=== PATIENT | female | born 1960 | race Caucasian/White ===

== ENCOUNTER 2021-09-10 07:34 | Emergency (ER) | payer OTHER, SELFPAY ==
--- NOTE | 2021-09-10 | ECG_ITS ---
Test Reason : HI HEART RATE Blood Pressure : / mmHG Vent. Rate : 186 BPM Atrial Rate : 000 BPM P-R Int : 000 ms QRS Dur : 080 ms QT Int : 264 ms P-R-T Axes : 000 -17 143 degrees QTc Int : 464 ms Supraventricular tachycardia Left ventricular hypertrophy with repolarization abnormality ( R in aVL , [place] product ) Abnormal ECG No previous ECGs available Referred By: Generic ED Physician Electronically Signed By:SERGIO COURTNEY
[2021-09-10 07:40] VITALS: BP 144/95; PULSE 184; RESP 20; TEMP 35.8; O2SAT 100; BMI 38.0
[2021-09-10] MEDS: Adenosine 6 MG/2 ML VIAL IVPUSH (07:45)
[2021-09-10 08:00] VITALS: BP 169/100; PULSE 98; RESP 22; TEMP 36.8; O2SAT 99
[2021-09-10] MEDS: 0.9 % Sodium Chloride 1,000 ML 999 ML IV (08:02)
--- NOTE | 2021-09-10 08:03 | PC.NURSE ---
arrived to Bed 9 alert, diaphoretic, svt in 190's. attempts to break hr with MD were unsuccessful. IV adenosine 6mg was effect and pt resting w/o complaint with hr of 95. nsr. is not on HTN meds. denies CP and headache.
--- NOTE | 2021-09-10 08:04 | ECG_ITS ---
Test Reason : POST ADENOSINE USE Blood Pressure : / mmHG Vent. Rate : 090 BPM Atrial Rate : 090 BPM P-R Int : 154 ms QRS Dur : 088 ms QT Int : 378 ms P-R-T Axes : 041 -28 006 degrees QTc Int : 462 ms Normal sinus rhythm Moderate voltage criteria for LVH, may be normal variant ( R in aVL , [place] product ) Borderline ECG When compared with ECG of 10-SEP-2021 07:42, Rhythm change Referred By: Heidy Webb Electronically Signed By:SERGIO COURTNEY
--- NOTE | 2021-09-10 08:05 | ED_ITS ---
HPI - Arrhythmia/Palpitations General Chief Complaint: Arrhythmia/Palpitations Stated Complaint: SOB/dizziness Time Seen by Provider: 09/10/21 07:48 Source: patient Mode of arrival: ambulatory Limitations: no limitations History of Present Illness HPI narrative: only thing new overnight was she took 12.5mg benadryl for congestion MD complaint: rapid heart beat, heart racing , skipped beats and palpitations Onset (ago): hour(s) (630am) Duration: constant Severity: severe Context: occurred during rest Associated symptoms: shortness of breath and other (dizziness) Related Data Allergies Allergy/AdvReac Type Severity Reaction Status Date / Time No Known Allergies Allergy Verified 09/10/21 08:45 Review of Systems Review of Systems: Constitutional : No Weight loss, No Fever, No Chills, No Fatigue, No Malaise ENT/Mouth : No sore throat, No Rhinorrhea Eyes: No Eye Pain, No Swelling, No Redness Cardiovascular : No Chest Pain, pos SOB, No Dyspnea on Exertion, No Orthopnea, No Edema, pos Palpitations Respiratory : No Cough, No Sputum, No Wheezing Gastrointestinal : No Nausea, No Vomiting, No Diarrhea, No Constipation, No abdominal Pain, No Hematochezia, No Melena Genitourinary : No Dysuria, No Urinary Frequency, No Hematuria, Musculoskeletal : No joint pain, No Myalgias, No Joint Swelling Skin : No Skin Lesions, No rash Neuro : No Weakness, No Numbness, pos Dizziness, No Headache Psych : No Anxiety/Panic, No Depression Heme/Lymph: No Bruising, No Bleeding,No Lymphadenopathy Endocrine : No Polyuria, No Polydipsia All other systems reviewed and are negative [facility] Past Medical History Attestation statement: The following information was validated with the patient. Medical History (Updated 09/10/21 @ 09:31 by Heidy Webb DO) No pertinent past medical history Social History Social History (System 09/10/21 @ 08:45 by Shwetha Quiroz) Alcohol intake: never Patient Tobacco Use Status: Never used Tobacco Use of substances other than those prescribed or required for medical reasons: No Advance Directives: No Advance Directives Information Provided: Yes Patient : No Physical Exam Vital Signs: Vital Signs: Last Vital Signs Temp 97.6 F 09/10/21 09:00 Pulse 76 09/10/21 09:00 Resp 12 09/10/21 09:00 BP 104/37 L 09/10/21 09:00 Pulse Ox 95 09/10/21 09:00 BMI result Body Mass Index 38.0 Appearance: Alert. Oriented X3. No acute distress. Eyes: Pupils equal, round and reactive to light. ENT: Pharynx normal. Neck: Normal inspection. Neck supple. CVS: tachycardic heart rate and rhythm. Pulses normal. Respiratory: No respiratory distress. Breath sounds normal. Abdomen: Soft and nontender. Skin: Skin warm and diaphoretic. Normal skin color. Normal skin turgor. Extremities: No lower extremity edema. No calf ttp Neuro: Oriented X 3. No motor deficit. No sensory deficit. Course Course Course Narrative: IVF for slight dehydration no cp/sob symptoms fully resolved after adenosine asymptomatic up and walking feels much better stable for DC will refer to cardiology MDM - Arrhythmia/Palpitations MDM Narrative Medical decision making narrative: 61 yo female presents with c/o rapid heart beat, feeling short of breath, dizzy starting at 630am - started abruptly did take only benadryl 12.5mg overnight for runny nose denies any other new changes no prior bouts of SVT - will try vagal maneuvers and possibly chemical cardioverson. Doubt ACS/PE denies CP no signs of DVT no hypoxia Lab Data Result diagrams: 09/10/21 08:46 09/10/21 08:46 Labs: Lab Results 09/10/21 09/10/21 09/10/21 Range/Units 08:46 08:46 08:46 WBC 6.8 (4.8-10.8) X10*3/uL RBC 4.79 (4.20-5.50) X10*6/uL Hgb 14.5 (12.0-16.0) g/dl Hct 47.7 H (37.0-47.0) % MCV 99.6 H (80.0-98.0) fL MCH 30.3 (27.0-33.0) pg MCHC 30.4 L (31.0-35.0) g/dl RDW 12.6 (11.0-16.0) % Plt Count 273 (160-400) X10*3/uL MPV 9.2 L (9.4-12.3) fL Immature Gran % (Auto) 0.3 (0.0-0.4) % Neut % (Auto) 57.2 (45-73) % Lymph % (Auto) 34.5 (20-40) % Amelia % (Auto) 5.7 (2-11) % Eos % (Auto) 1.9 (0-4) % Baso % (Auto) 0.4 (0-2) % Lymph # (Auto) 2.3 (1.2-4.9) X10*3/uL Amelia # (Auto) 0.4 (0.1-1.2) X10*3/uL Eos # (Auto) 0.1 (0.0-0.4) X10*3/uL Baso # (Auto) 0.0 (0.0-0.2) X10*3/uL Abs Immat Gran (auto) 0.02 (0.00-0.03) X10*3/uL Absolute Neuts (auto) 3.9 (2.0-8.3) x10*3/uL Absolute Nucleated RBC 0.000 (0.0-0.012) X10*3/uL Nucleated RBC % (auto) 0.0 (0.0-0.2) /100WBC Sodium 141 (135-145) mmol/L Potassium 4.0 (3.3-5.1) mmol/L Chloride 110 H (96-108) mmol/L Carbon Dioxide 19 L (22-29) mmol/L Anion Gap 16 (12-20) BUN 28 H (9-16) mg/dL Creatinine 1.00 (0.5-1.4) mg/dL Estim Creat Clear Calc 67.3 Estimated GFR 57 Random Glucose 97 (60-115) mg/dL Calcium 9.6 (8.4-10.2) mg/dL Magnesium 2.2 (1.6-2.6) mg/dL Total Bilirubin 0.4 (0.0-1.0) mg/dL Direct Bilirubin 0.2 (0.0-0.5) mg/dL AST 39 H (5-31) U/L ALT 56 H (0-31) U/L Alkaline Phosphatase 69 (39-117) U/L Total Protein 8.0 (6.5-8.0) g/dL Albumin 4.7 (3.5-5.0) g/dL TSH 1.33 (0.32-4.0) uIU/mL COVID-19 (CESAR) Negative (Negative) COVID-19 Clin Com See Note ECG Data Attestation: I personally reviewed and interpreted this ECG as follows: ECG interpretation date: 09/10/21 ECG interpretation time: 08:10 Interpretation: Rate: 186 Rhythm: regular narrow complex tachycardia [place]le[place]: left Normal P waves. Normal OUMAR. Normal QRS complex. ST T wave : nonspecific no FRARAH qTC: normal prior studies: no acute ischemia The study has been interpreted contemporaneously by me. EKG #2 Rate: 90 Rhythm: NSR Dele[place]: left, LVH Normal P waves. Normal OUMAR. Normal QRS complex. ST T wave : normal no FARRAH qTC: normal prior studies: no acute ischemia The study has been interpreted contemporaneously by me. Procedures Procedure Narrative Procedure Narrative: attemtped vagal maneuvers to break SVT unable to break rhythm the patient was then given adenosine 6mg IVP and went to sinus tach 110 without issue Critical Care Time Critical Care Time Critical Care Time: Yes Total Critical Care Time: 35 Attestation: vigilance at bedside, reassessments, EKG and tele interpretation - serial, IV adenosine - chemical cardioversion I attest to this time spent taking care of the patient Discharge Plan Discharge Clinical Impression: Supraventricular tachycardia, Acute dehydration Patient Disposition: Home, Self-Care Instructions: Supraventricular Tachycardia (ED), Dehydration (ED) Additional Instructions: return to ED for any worsening symptoms or concerns you had a very small elevation in your liver function tests please have your doctor keep an eye on them avoid benadryl, small cup of coffee per day, no energy drinks, no sudafed produces COVID test negative Referrals: Tarik Hussein MD [Physician] - 1 week Stand Alone Forms: Work/School Release
[2021-09-10 08:50] LABS: MANUAL DIFF FLAG NO
[2021-09-10 08:51] LABS: Basophils Percent Auto 0.4 % (0-2); Eosinophils Absolute Auto 0.1 X10*3/uL (0.0-0.4); Eosinophils Percent Auto 1.9 % (0-4); Hematocrit 47.7 % (37.0-47.0); Hemoglobin 14.5 g/dl (12.0-16.0); Imm Gran Abs Auto 0.02 X10*3/uL (0.00-0.03); Imm Gran Pct Auto 0.3 % (0.0-0.4); Lymphocytes Absolute Auto 2.3 X10*3/uL (1.2-4.9); Lymphocytes Percent Auto 34.5 % (20-40); Mean Corpuscular HGB Conc 30.4 g/dl (31.0-35.0); Mean Corpuscular Hemoglobin 30.3 pg (27.0-33.0); Mean Corpuscular Volume 99.6 fL (80.0-98.0); Mean Platelet Volume 9.2 fL (9.4-12.3); Monocytes Absolute Auto 0.4 X10*3/uL (0.1-1.2); Monocytes Percent Auto 5.7 % (2-11); Neutrophils Absolute Auto 3.9 x10*3/uL (2.0-8.3); Neutrophils Percent Auto 57.2 % (45-73); Platelet Count 273 X10*3/uL (160-400); Red Blood Count 4.79 X10*6/uL (4.20-5.50); Red Cell Distribution Width 12.6 % (11.0-16.0); White Blood Count 6.8 X10*3/uL (4.8-10.8)
[2021-09-10 09:00] VITALS: BP 104/37; PULSE 76; RESP 12; TEMP 36.4; O2SAT 95
[2021-09-10 09:10] LABS: Alanine Aminotransferase 56 U/L (0-31); Albumin Level 4.7 g/dL (3.5-5.0); Alkaline Phosphatase 69 U/L (39-117); Anion Gap 16 (12-20); Aspartate Amino Transferase 39 U/L (5-31); Bilirubin Direct 0.2 mg/dL (0.0-0.5); Bilirubin Total 0.4 mg/dL (0.0-1.0); Blood Urea Nitrogen 28 mg/dL (9-16); Calcium 9.6 mg/dL (8.4-10.2); Carbon Dioxide 19 mmol/L (22-29); Chloride 110 mmol/L (96-108); Creatinine Clr Calc Pharmacy 67.3; Estimated Glomerular Filt Rate 57; Glucose Random 97 mg/dL (60-115); Magnesium 2.2 mg/dL (1.6-2.6); Sodium 141 mmol/L (135-145)
[2021-09-10 09:19] LABS: COVID-19 Test Negative (Negative)
[2021-09-10 09:30] LABS: Thyroid Stimulating Hormone 1.33 uIU/mL (0.32-4.0)
== END 2021-09-10 10:03 | disposition home or self-care (01) ==
PROVIDERS: Emergency Provider Emergency Medicine
DX: I47.1 Supraventricular tachycardia (principal); E86.0 Dehydration; Z20.822 Contact with and (suspected) exposure to COVID-19
CPT/HCPCS: 36415; 80048; 80076; 83735; 84443; 85025; 87635; 93005; 96361; 96374; 99285; 99291; J0153